=== PATIENT | female | born 1950 | race Caucasian/White ===

== ENCOUNTER 2023-08-28 13:59 | Emergency (ER) | payer OTHER ==
[~2023-08-28 13:59] MED LIST: Iopamidol 370 76% 100 ML VIAL ONE
[2023-08-28] MEDS ORDERED: Azithromycin 500 MG VIAL ONE (14:53)
[2023-08-28] MEDS ORDERED: cefTRIAXone (ROCEPHIN) 2 GM VIAL ONE (14:53)
[2023-08-28 14:58] LABS: Hemoglobin 7.9 g/dL (12.0-15.5); Mean Corpuscular HGB CONC 29.3 g/dL (32.0-36.0); Mean Corpuscular Hemoglobin 19.9 pg (27.0-33.0); Mean Corpuscular Volume 68.2 fl (81.6-98.3); Mean Platelet Volume 8.8 fl (7.4-10.4); Platelet Count 930 10x3/uL (150-450); RBC Distribution Width 19.4 % (11.5-14.5); Red Blood Cell (RBC) Count 3.96 10x6/uL (3.90-5.03); White Blood Cell (WBC) Count 34.1 10x3/uL (3.5-10.5)
[2023-08-28 15:13] LABS: ALT (SGPT) 20 U/L (8-55); AST (SGOT) 16 U/L (5-34); Albumin 3.2 g/dL (3.4-4.8); Alkaline Phosphatase 122 U/L (40-110); Anion Gap 19 mmol/L (10-20); BUN (Urea Nitrogen) 14 mg/dL (9.8-20.1); Bilirubin, Total 0.4 mg/dL (0.2-1.2); Calc. Creatinine Clearance 0 mL/min (70-130); Carbon Dioxide 22 mmol/L (23-31); Chloride 99 mmol/L (98-107); Estimated GFR 94; Globulin 2.9 g/dL (2.4-3.5); Glucose 177 mg/dL (80-115); Lipase 12 U/L (8-78); Potassium 3.9 mmol/L (3.5-5.1); Protein, Total 6.1 g/dL (5.8-8.1); Sodium 136 mmol/L (136-145)
[2023-08-28 15:19] LABS: Troponin I 0.013 ng/mL (< 0.028)
[2023-08-28 15:26] LABS: MDiff Complete? YES
[2023-08-28 15:32] LABS: Band 1 % (5-11); Lymphocytes 4 % (21-51); Monocytes 4 % (0-10); Neutrophil 91 % (42-75)
[2023-08-28 15:38] LABS: Anisocytosis SLIGHT = 6-15 cells (100X) (0-5/hpf); Ovalocytes SLIGHT = 2-5 cells (100X) (0-1/hpf); Polychromasia SLIGHT = 2-3 cells (100X) (0-2/hpf)
[2023-08-28 15:39] LABS: Large Platelets SLIGHT (None Seen); Microcytosis SLIGHT = 6-15 cells (100X) (0-5/hpf); Platelet Adequacy Comment PLT clumps seen-ADEQ
[2023-08-28 16:19] LABS: SARS-CoV-2 NAA Rapid Test Not Detected (NotDetected)
[2023-08-28] MEDS ORDERED: metroNIDAZOLE 500 MG/100 ML BAG ONE (17:31)
[2023-08-28] MEDS ORDERED: VANCOMYCIN 1.25 GM/250 ML BAG 1.25 GM in Premix 1 BAG IVPB SCH (18:00)
[2023-08-28 18:49] LABS: Bilirubin Neg (Negative); Blood, Urine 10 (Negative); Clarity Clear (Clear); Glucose, Urine (Dipstick) Normal (Negative); Ketone, Urine 5 mg/dL (Negative); Leukocyte 25 (Negative); Nitrite Negative (Negative); Protein, Urine (Dipstick) 15 mg/dl (Neg-Trace); Urobilinogen Normal mg/dL (Less than 2); pH, Urine 6.5 (5.0-9.0)
[2023-08-28 19:35] LABS: Bacteria/HPF 1+ HPF (None Seen); CAUTI Indications for Culture Pelvic or flank pain; RBC/HPF 0-3 HPF (0-3); Squamous Epithelial 0-3 HPF (0-3)
[2023-08-28 19:36] LABS: Urine Culture Reflex No No
== END 2023-08-28 19:22 | disposition short-term general hospital (02) ==
LOC: CSHERS 13:59
DX: J85.1 Abscess of lung with pneumonia (principal); D64.9 Anemia, unspecified; A41.9 Sepsis, unspecified organism
CPT/HCPCS: 0240U; 71275; 74174; 80053; 81001; 83605; 83690; 84484; 85025; 86850; 86900; 86901; 87040; 87086; 93005; 96365; 96366; 96368; 99285; J0456; J0696; J3370; Q9967